=== PATIENT | female | born 2000 | race Two or more races ===

== ENCOUNTER 2020-08-04 13:04 | Emergency (ER) | payer MEDICAID, OTHER ==
[~2020-08-04] VITALS: Ht 167.6 cm; Wt 65.8 kg
[2020-08-04] MEDS ORDERED: PANTOPRAZOLE 40 MG/10 ML VIAL INJ IV ONE (13:30)
[2020-08-04] MEDS ORDERED: SODIUM CHLORIDE 0.9% 1,000 ML IVB ONE (13:30)
[2020-08-04] MEDS ORDERED: MORPHINE SULFATE 4 MG/ML SYR/VIAL IV ONE (13:30)
[2020-08-04] MEDS ORDERED: PROCHLORPERAZINE EDISYLATE 5 MG/ML 2ML VIAL IV ONE (13:30)
[2020-08-04 13:53] VITALS: BP 129/77
[2020-08-04 13:53] LABS: Basophils # (auto) 0 10 ^3/uL (0-0.2); Basophils % (auto) 0.3 % (0.0-2.0); Eosinophils # (auto) 0 10 ^3/uL (0-0.8); Hematocrit 44.2 % (36.0-46.0); Hemoglobin 15.1 g/dL (12.2-16.2); Lymphocytes % (auto) 8.8 % (10.0-50.0); Mean Corpuscular Hemoglobin 31.8 pg (28.0-32.0); Mean Corpuscular Hgb Conc. 34.2 g/dL (32.0-36.0); Mean Corpuscular Volume 92.9 fL (80.0-100.0); Monocytes # (auto) 0.4 10 ^3/uL (0-1.3); Monocytes % (auto) 3.8 % (0.0-12.0); Neutrophils # (auto) 10.2 10 ^3/uL (1.6-8.6); Neutrophils % (auto) 87.1 % (37.0-80.0); Red Blood Cells 4.76 10^6/uL (4.0-5.20); Red Cell Distribution Width 13.1 % (11.8-14.3); White Blood Cell 11.7 10^3/uL (4.4-10.8)
[2020-08-04 14:15] LABS: Albumin 4.1 g/dL (3.4-5.0); Calcium 9.1 mg/dL (8.5-10.1); Potassium 3.6 mmol/L (3.5-5.1)
[2020-08-04 14:18] LABS: BUN/Creatinine Ratio 18.8; Bilirubin, Total 0.6 mg/dL (0.2-1.0); Total Protein 7.8 g/dL (6.4-8.2)
== END 2020-08-04 15:13 | disposition home or self-care (01) ==
LOC: ER 13:04
DX: R11.2 Nausea with vomiting, unspecified (principal); F12.90 Cannabis use, unspecified, uncomplicated
CPT/HCPCS: 36415; 80053; 83690; 85025; 96361; 96374; 96375; 99284; C9113; J0780; J2270; J7030

== ENCOUNTER 2020-08-24 13:57 | Emergency (ER) | payer MEDICAID ==
[~2020-08-24] VITALS: Ht 167.6 cm; Wt 65.8 kg
[2020-08-24 14:46] VITALS: BP 113/76
[2020-08-24] MEDS ORDERED: KETOROLAC TROMETH 60MG/2ML VIAL IM ONE (15:45)
== END 2020-08-24 17:27 | disposition home or self-care (01) ==
LOC: ER 13:57
DX: M62.830 Muscle spasm of back (principal); M54.5 Low back pain; V49.9XXA Car occupant (driver) (passenger) injured in unspecified traffic accident, initial encounter; Y93.89 Activity, other specified; Y92.89 Other specified places as the place of occurrence of the external cause; Y99.8 Other external cause status
CPT/HCPCS: 71250; 72040; 72100; 96372; 99284; J1885

== ENCOUNTER 2020-12-01 15:55 | Emergency (ER) | payer MEDICAID ==
[~2020-12-01] VITALS: Ht 167.6 cm; Wt 65.8 kg
[2020-12-01] MEDS ORDERED: ACETAMINOPHEN 325 MG TAB PO ONE (17:45)
[2020-12-01 18:42] LABS: Basophils # (auto) 0.1 10 ^3/uL (0-0.2); Basophils % (auto) 0.5 % (0.0-2.0); Eosinophils # (auto) 0 10 ^3/uL (0-0.8); Hematocrit 38.3 % (36.0-46.0); Hemoglobin 13.2 g/dL (12.2-16.2); Mean Corpuscular Hemoglobin 30.8 pg (28.0-32.0); Mean Corpuscular Hgb Conc. 34.4 g/dL (32.0-36.0); Mean Corpuscular Volume 89.5 fL (80.0-100.0); Monocytes # (auto) 0.6 10 ^3/uL (0-1.3); Monocytes % (auto) 3.8 % (0.0-12.0); Neutrophils % (auto) 89.7 % (37.0-80.0); Nucleated Red Blood Cells % 0.1 %; Platelet Count (auto) 263 10^3/uL (140-450); Red Blood Cells 4.28 10^6/uL (4.0-5.20); White Blood Cell 16.7 10^3/uL (4.4-10.8)
[2020-12-01 18:59] LABS: Albumin 4.2 g/dL (3.4-5.0); Potassium 3.1 mmol/L (3.5-5.1)
[2020-12-01 19:03] LABS: BUN/Creatinine Ratio 8.4; Bilirubin, Total 0.7 mg/dL (0.2-1.0); Total Protein 7.4 g/dL (6.4-8.2)
[2020-12-01] MEDS ORDERED: SODIUM CHLORIDE 0.9% 1,000 ML IV ONE (19:45)
[2020-12-01] MEDS ORDERED: cefTRIAXone 1GM/50ML D5W 50 ML IV ONE (19:45)
[2020-12-01] MEDS ORDERED: metroNIDAZOLE 500MG/100ML 100 ML IV ONE (21:00)
[2020-12-01 21:03] VITALS: BP 118/75
[2020-12-01] MEDS ORDERED: PANTOPRAZOLE 40 MG/10 ML VIAL INJ IV ONE (21:15)
[2020-12-01 22:32] LABS: Urine Bacteria MOD /hpf (None Seen); Urine Blood Negative /uL (Negative); Urine Hyaline Cast FEW /lpf (0 - 2); Urine Specific Gravity 1.013 (1.001-1.035); Urine WBC 3 /hpf (0 - 5)
== END 2020-12-01 23:34 | disposition home or self-care (01) ==
LOC: ER 15:55
DX: K52.9 Noninfective gastroenteritis and colitis, unspecified (principal); Z20.822 Contact with and (suspected) exposure to COVID-19
CPT/HCPCS: 36415; 71046; 74176; 80053; 81001; 83690; 85025; 85049; 87426; 96365; 96367; 96375; 99285; C9113; J0696; J3490; J7030

== ENCOUNTER 2021-06-10 07:32 | Emergency (ER) | payer MEDICAID ==
[~2021-06-10] VITALS: Ht 167.6 cm; Wt 65.8 kg
[2021-06-10 08:25] LABS: Urine Bacteria FEW /hpf (None Seen); Urine Blood Negative /uL (Negative); Urine Mucus FEW (None Seen); Urine Specific Gravity 1.031 (1.001-1.035); Urine WBC 2 /hpf (0 - 5)
[2021-06-10] MEDS ORDERED: SODIUM CHLORIDE 0.9% 1,000 ML IV ONE ×2 (09:00)
[2021-06-10] MEDS ORDERED: PROCHLORPERAZINE EDISYLATE 5 MG/ML 2ML VIAL IV ONE (09:00)
[2021-06-10] MEDS ORDERED: MORPHINE SULFATE 4 MG/ML SYR/VIAL IV ONE (09:00)
[2021-06-10 10:03] LABS: Alcohol, Urine < 3.0 mg/dL (0-10); Amphetamine Screen, Urine NEGATIVE (NEGATIVE); Barbiturate Scree,Urine NEGATIVE (NEGATIVE); Benzodiazephine Screen, Urine NEGATIVE (NEGATIVE); Cannabinoid Screen, Urine POSITIVE (NEGATIVE); Cocaine Screen, Urine NEGATIVE (NEGATIVE); Opiate Scree,Urine NEGATIVE (NEGATIVE); Phencyclidine Screen, Urine NEGATIVE (NEGATIVE)
[2021-06-10 10:54] LABS: Basophils # (auto) 0 10 ^3/uL (0-0.2); Basophils % (auto) 0.4 % (0.0-2.0); Eosinophils # (auto) 0 10 ^3/uL (0-0.8); Eosinophils % (auto) 0.1 % (0.0-7.0); Hematocrit 40.8 % (36.0-46.0); Hemoglobin 14.4 g/dL (12.2-16.2); Lymphocytes # (auto) 1.9 10 ^3/uL (0.4-5.4); Lymphocytes % (auto) 19.7 % (10.0-50.0); Mean Corpuscular Hemoglobin 30.9 pg (28.0-32.0); Mean Corpuscular Hgb Conc. 35.3 g/dL (32.0-36.0); Mean Corpuscular Volume 87.5 fL (80.0-100.0); Monocytes # (auto) 0.8 10 ^3/uL (0-1.3); Monocytes % (auto) 8.4 % (0.0-12.0); Neutrophils # (auto) 6.8 10 ^3/uL (1.6-8.6); Neutrophils % (auto) 71.4 % (37.0-80.0); Nucleated Red Blood Cells % 0.1 %; Red Blood Cells 4.66 10^6/uL (4.0-5.20); Red Cell Distribution Width 13.1 % (11.8-14.3); White Blood Cell 9.6 10^3/uL (4.4-10.8)
[2021-06-10 11:00] LABS: Albumin 4.6 g/dL (3.4-5.0); Calcium 9.6 mg/dL (8.5-10.1); Potassium 3.8 mmol/L (3.5-5.1)
[2021-06-10 11:05] LABS: BUN/Creatinine Ratio 18.8; Bilirubin, Total 0.9 mg/dL (0.2-1.0)
[2021-06-10 11:56] VITALS: BP 130/70
== END 2021-06-10 12:43 | disposition home or self-care (01) ==
LOC: ER 07:32
DX: F12.188 Cannabis abuse with other cannabis-induced disorder (principal)
CPT/HCPCS: 36415; 80053; 80307; 81001; 83690; 84702; 85025; 96361; 96374; 96375; 99284; J0780; J2270; J7030

== ENCOUNTER 2022-06-10 11:07 | Emergency (ER) | payer BC, MEDICAID ==
[~2022-06-10] VITALS: Ht 167.6 cm; Wt 63.6 kg
[~2022-06-10 11:07] MED LIST: KETO10TA PO
[2022-06-10] MEDS ORDERED: SODIUM CHLORIDE 0.9% 1,000 ML IVB ONE (11:30)
[2022-06-10] MEDS ORDERED: PANTOPRAZOLE 40 MG/10 ML VIAL INJ IV ONE (11:30)
[2022-06-10] MEDS ORDERED: PROCHLORPERAZINE EDISYLATE 5 MG/ML 2ML VIAL IV ONE (11:30)
[2022-06-10] MEDS ORDERED: MORPHINE SULFATE 4 MG/ML SYR/VIAL IV ONE (11:30)
[2022-06-10 11:56] LABS: Basophils # (auto) 0.1 10 ^3/uL (0-0.2); Basophils % (auto) 0.6 % (0.0-2.0); Eosinophils # (auto) 0 10 ^3/uL (0-0.8); Eosinophils % (auto) 0.1 % (0.0-7.0); Hematocrit 41.9 % (36.0-46.0); Hemoglobin 14.4 g/dL (12.2-16.2); Lymphocytes # (auto) 0.9 10 ^3/uL (0.4-5.4); Lymphocytes % (auto) 7.8 % (10.0-50.0); Mean Corpuscular Hemoglobin 30.6 pg (28.0-32.0); Mean Corpuscular Hgb Conc. 34.4 g/dL (32.0-36.0); Mean Corpuscular Volume 88.8 fL (80.0-100.0); Monocytes # (auto) 0.4 10 ^3/uL (0-1.3); Neutrophils # (auto) 10.6 10 ^3/uL (1.6-8.6); Neutrophils % (auto) 88.5 % (37.0-80.0); Red Blood Cells 4.72 10^6/uL (4.0-5.20); Red Cell Distribution Width 12.7 % (11.8-14.3); White Blood Cell 11.9 10^3/uL (4.4-10.8)
[2022-06-10 12:08] LABS: Albumin 4.4 g/dL (3.4-5.0); Calcium 9.1 mg/dL (8.5-10.1); Potassium 3.3 mmol/L (3.5-5.1)
[2022-06-10 12:15] LABS: BUN/Creatinine Ratio 11.1; Bilirubin, Total 0.6 mg/dL (0.2-1.0)
[2022-06-10] MEDS ORDERED: PANT40TA2 PO (13:31)
[2022-06-10 13:54] VITALS: BP 132/64
== END 2022-06-10 13:55 | disposition home or self-care (01) ==
LOC: ER 11:07
DX: R11.2 Nausea with vomiting, unspecified (principal); F12.90 Cannabis use, unspecified, uncomplicated
CPT/HCPCS: 36415; 80053; 83690; 85025; 96361; 96374; 96375; 99284; C9113; J0780; J2270; J7030

== ENCOUNTER 2023-08-20 03:43 | Inpatient (IN) | payer BC, MEDICAID ==
[~2023-08-20] VITALS: Ht 167.6 cm; Wt 76.0 kg
[~2023-08-20 03:43] MED LIST changes: +DICY10CA PO; -KETO10TA PO; +NAPR-1335 PO; +PANT40TA2 PO; +ZOFR4T PO
[2023-08-20 04:50] LABS: Hemoglobin 15.3 g/dL (12.2-16.2); Mean Corpuscular Hemoglobin 29.7 pg (28.0-32.0); Red Blood Cells 5.14 10^6/uL (4.0-5.20)
[2023-08-20 04:51] LABS: Basophils # (auto) 0.1 10 ^3/uL (0-0.2); Basophils % (auto) 0.6 % (0.0-2.0); Eosinophils # (auto) 0 10 ^3/uL (0-0.8); Eosinophils % (auto) 0.1 % (0.0-7.0); Hematocrit 45.4 % (36.0-46.0); Lymphocytes # (auto) 2.1 10 ^3/uL (0.4-5.4); Mean Corpuscular Hgb Conc. 33.6 g/dL (32.0-36.0); Mean Corpuscular Volume 88.4 fL (80.0-100.0); Monocytes % (auto) 6.4 % (0.0-12.0); Neutrophils # (auto) 11.8 10 ^3/uL (1.6-8.6); Neutrophils % (auto) 78.9 % (37.0-80.0); Nucleated Red Blood Cells % 0.1 %; Red Cell Distribution Width 13.9 % (11.8-14.3); White Blood Cell 14.9 10^3/uL (4.4-10.8)
[2023-08-20 05:23] LABS: Chloride 101 mmol/L (98-107); Potassium 3.6 mmol/L (3.5-5.1); Sodium 137 mmol/L (136-145)
[2023-08-20 05:24] LABS: Anion Gap 9 (5-15); Calcium 10.6 mg/dL (8.7-10.4); Carbon Dioxide 27 mmol/L (20-30)
[2023-08-20 05:29] LABS: BUN/Creatinine Ratio 11.7 (10.0-20.0); Blood Urea Nitrogen 11 mg/dL (9-23); Glucose 127 mg/dL (74-106)
[2023-08-20 07:06] LABS: Alanine Aminotransferase 14 U/L (7-40); Alkaline Phosphatase 107 U/L (46-116); Aspartate Aminotransferase 16 U/L (13-40)
[2023-08-20] MEDS: SODIUM CHLORIDE 0.9% 1,000 ML IV ONE ×2 (07:58)
[2023-08-20] MEDS: metroNIDAZOLE 500MG/100ML 100 ML IV ONE (08:03)
[2023-08-20] MEDS: cefTRIAXone 1GM/50ML D5W 50 ML IV ONE (08:03)
[2023-08-20 08:15] VITALS: RESP 14; O2SAT 100
[2023-08-20] MEDS ORDERED: DOCUSATE SOD 100 MG CAP PO PRN ×3 (08:45→09:30)
[2023-08-20] MEDS ORDERED: ACETAMINOPHEN 325 MG TAB PO PRN ×3 (08:45→09:30)
[2023-08-20] MEDS ORDERED: MORPHINE SULFATE INJ 2 MG/ml SYRG IV PRN ×2 (08:45→09:30)
[2023-08-20] MEDS ORDERED: SODIUM CHLORIDE 0.9% 1,000 ML IV SCH ×2 (08:45→09:30)
[2023-08-20] MEDS ORDERED: ONDANSETRON HCL 4 MG/2 ML VIAL IV PRN ×2 (08:45→09:30)
[2023-08-20] MEDS ORDERED: cefTRIAXone 1GM/50ML D5W 50 ML IV SCH (09:00)
[2023-08-20] MEDS: cefTRIAXone 1GM/50ML D5W 50 ML IV SCH (09:00)
[2023-08-20] MEDS ORDERED: KETOROLAC TROMETH 30 MG/ML 1ML VIAL IV PRN (09:00)
[2023-08-20] MEDS: DICYCLOMINE HCL 10 MG CAP PO SCH ×2 (09:18→21:30)
[2023-08-20] MEDS: KETOROLAC TROMETH 30 MG/ML 1ML VIAL IV ONE (09:23)
[2023-08-20] MEDS: PANTOPRAZOLE 40 MG/10 ML VIAL INJ IV ONE (09:23)
[2023-08-20] MEDS: metroNIDAZOLE 500MG/100ML 100 ML IV SCH (09:24)
[2023-08-20 09:30] LABS: Erythrocyte Sedimentation Rate 7 mm/hr (0-20)
[2023-08-20] MEDS: PANTOPRAZOLE 40 MG/10 ML VIAL INJ IV SCH (09:30)
[2023-08-20] MEDS: SODIUM CHLORIDE 0.9% 1,000 ML IV SCH (09:30)
[2023-08-20] MEDS: ONDANSETRON HCL 4 MG/2 ML VIAL IV PRN (09:45)
[2023-08-20] MEDS ORDERED: PANTOPRAZOLE 40 MG/10 ML VIAL INJ IV SCH (10:00)
[2023-08-20 10:46] VITALS: BP_SYST 119; BP_DIAS 53; BP_DIAS 55; PULSE 68; RESP 17; TEMP 98.2; O2SAT 99
[2023-08-20] MEDS: MORPHINE SULFATE INJ 2 MG/ml SYRG IV PRN (13:17)
[2023-08-20] MEDS ORDERED: DICYCLOMINE HCL 10 MG CAP PO SCH (14:00)
[2023-08-20] MEDS ORDERED: metroNIDAZOLE 500MG/100ML 100 ML IV SCH (14:00)
[2023-08-20 17:20] VITALS: BP 111/79; PULSE 60; RESP 20; TEMP 98; O2SAT 100
[2023-08-20 20:00] VITALS: BP 110/74; PULSE 50; RESP 18; TEMP 97.8; O2SAT 96
[2023-08-20] MEDS: KETOROLAC TROMETH 30 MG/ML 1ML VIAL IV PRN (21:30)
[2023-08-20 22:00] VITALS: BP 106/78; PULSE 49; RESP 16; TEMP 98.5; O2SAT 97
[2023-08-21] VITALS (8 sets, daily range): BP systolic 100–117; BP diastolic 55–75; PULSE 50–68; RESP 17–21; TEMP 88.3–98.7; O2SAT 98–99
[2023-08-21 05:41] LABS: Basophils # (auto) 0.1 10 ^3/uL (0-0.2); Basophils % (auto) 0.9 % (0.0-2.0); Eosinophils # (auto) 0 10 ^3/uL (0-0.8); Eosinophils % (auto) 0.6 % (0.0-7.0); Hematocrit 38.2 % (36.0-46.0); Hemoglobin 12.8 g/dL (12.2-16.2); Lymphocytes # (auto) 3.2 10 ^3/uL (0.4-5.4); Lymphocytes % (auto) 40.9 % (10.0-50.0); Mean Corpuscular Hemoglobin 29.9 pg (28.0-32.0); Mean Corpuscular Hgb Conc. 33.5 g/dL (32.0-36.0); Mean Corpuscular Volume 89.4 fL (80.0-100.0); Monocytes # (auto) 0.8 10 ^3/uL (0-1.3); Neutrophils # (auto) 3.7 10 ^3/uL (1.6-8.6); Neutrophils % (auto) 47.6 % (37.0-80.0); Red Blood Cells 4.27 10^6/uL (4.0-5.20); Red Cell Distribution Width 13.4 % (11.8-14.3); White Blood Cell 7.8 10^3/uL (4.4-10.8)
[2023-08-21 06:05] LABS: Albumin 3.9 g/dL (3.2-4.8); Alkaline Phosphatase 74 U/L (46-116); Anion Gap 8 (5-15); Aspartate Aminotransferase 10 U/L (13-40); BUN/Creatinine Ratio 11.2 (10.0-20.0); Bilirubin, Total 0.6 mg/dL (0.2-1.0); Blood Urea Nitrogen 10 mg/dL (9-23); Calcium 8.9 mg/dL (8.5-10.1); Carbon Dioxide 25 mmol/L (20-30); Chloride 106 mmol/L (98-107); Glucose 82 mg/dL (74-106); Potassium 3.9 mmol/L (3.5-5.1); Sodium 139 mmol/L (136-145)
[2023-08-21 06:48] LABS: Alanine Aminotransferase < 9 U/L (7-40)
[2023-08-21 17:09] LABS: Urine Bacteria NONE SEEN /hpf (None Seen); Urine Blood Negative /uL (Negative); Urine Clarity Clear (Clear); Urine Color Colorless (Yellow); Urine Protein, UAD Negative (Negative); Urine Specific Gravity 1.011 (1.001-1.035); Urine Urobilinogen Normal (Negative); Urine WBC <1 /hpf (0 - 5); Urine pH 5.5 (5.0-8.0)
[2023-08-21 17:20] LABS: Amphetamine Screen, Urine Neg (NEGATIVE); Barbiturate Scree,Urine Neg (NEGATIVE); Benzodiazephine Screen, Urine Neg (NEGATIVE); Cocaine Screen, Urine Neg (NEGATIVE); Opiate Scree,Urine Neg (NEGATIVE)
[2023-08-21 17:21] LABS: Cannabinoid Screen, Urine Pos (NEGATIVE); Phencyclidine Screen, Urine Neg (NEGATIVE)
[2023-08-21] MEDS: MAGNESIUM CITRATE SOLUTION 300 ML BTL PO ONE (22:45)
[2023-08-22] VITALS (8 sets, daily range): BP systolic 100–125; BP diastolic 44–81; PULSE 49–89; RESP 17–20; TEMP 97.5–98.2; O2SAT 98–100
[2023-08-22] MEDS: GOLYTELY 4L KIT PO ONE (12:26)
[2023-08-23 05:51] LABS: INR 1.15 (0.9-1.15); Partial Thromboplastin Time 31.3 SEC (24.5-34.5)
[2023-08-23] MEDS: MAGNESIUM CITRATE SOLUTION 300 ML BTL PO ONE (06:00)
[2023-08-23] MEDS: GOLYTELY 4L KIT PO ONE (06:37)
[2023-08-23 08:39] VITALS: BP 102/59; PULSE 65; RESP 16; TEMP 98.5; O2SAT 98
[2023-08-23] MEDS: POLYETHYLENE GLYCOL 17 GM PWDR PO SCH (09:03)
[2023-08-23] MEDS ORDERED: KETAMINE 50mg/ML 1ml syringe ONE (12:56)
[2023-08-23] MEDS ORDERED: fentaNYL CITRATE 100 MCG/2 ML VL ONE (12:56)
[2023-08-23] MEDS ORDERED: MIDAZOLAM HCL 2MG/2ML 2ml VIAL (1mg/ml) ONE ×2 (12:56→14:55)
[2023-08-23] MEDS ORDERED: ONDANSETRON HCL 4 MG/2 ML VIAL ONE (12:57)
[2023-08-23] MEDS ORDERED: GLYCOPYRROLATE 0.2 MG/ML 1ML VIAL ONE (12:57)
[2023-08-23] MEDS ORDERED: PROPOFOL 10 MG/ML 20 ML IV ONE (12:57)
[2023-08-23 13:00] VITALS: BP 114/78; PULSE 51; RESP 18; TEMP 98.6; O2SAT 100
[2023-08-23] MEDS ORDERED: HYDROmorphone HCL 2 MG/ML VL/or syr IV PRN (15:15)
[2023-08-23] MEDS: ONDANSETRON HCL 4 MG/2 ML VIAL IV ONE (15:15)
[2023-08-23 16:59] VITALS: BP 108/67; PULSE 96; RESP 18; TEMP 98; O2SAT 98
[2023-08-23 20:00] VITALS: BP 123/80; PULSE 68; RESP 18; TEMP 98.3; O2SAT 100
[2023-08-23 21:00] VITALS: BP 123/80; PULSE 68; RESP 18; TEMP 98.3; O2SAT 100
[2023-08-24 01:00] VITALS: BP 134/76; PULSE 59; RESP 17; TEMP 97.9; O2SAT 100
[2023-08-24 05:00] VITALS: BP 146/81; PULSE 76; RESP 19; TEMP 98.3; O2SAT 100
[2023-08-24 08:31] VITALS: BP 126/90; PULSE 74; RESP 15; TEMP 98.2; O2SAT 99
[2023-08-24] MEDS ORDERED: DICY10CA PO (11:09)
[2023-08-24] MEDS ORDERED: PANT40TA2 PO (11:09)
[2023-08-24] MEDS ORDERED: MET500T PO (11:12)
[2023-08-24] MEDS ORDERED: LEVO500T91 PO (11:12)
[2023-08-24 12:02] VITALS: BP 132/76; PULSE 60; RESP 16; TEMP 98.6; O2SAT 99
[2023-08-24 15:06] LABS: Saccharomyces cerevisiae IgA <20.0 Units (0.0-24.9)
== END 2023-08-24 16:00 | disposition home or self-care (01) | DRG 872 ==
LOC: ER 03:43 → OVERFLOW 08:45 → ER 08:45 → WEST WING 10:27
PROVIDERS: ADMIT Nurse Practitioner Family; ATTEND Internal Medicine
PROC: 0DBB8ZX Excision of Ileum, Via Natural or Artificial Opening Endoscopic, Diagnostic (ICD-10-PCS; 2023-08-23)
PROC: 0DB98ZX Excision of Duodenum, Via Natural or Artificial Opening Endoscopic, Diagnostic (ICD-10-PCS; principal; 2023-08-23 14:17)
PROC: 0DB68ZX Excision of Stomach, Via Natural or Artificial Opening Endoscopic, Diagnostic (ICD-10-PCS; 2023-08-23 14:17)
DX: A41.9 Sepsis, unspecified organism (principal); E83.52 Hypercalcemia; I88.0 Nonspecific mesenteric lymphadenitis; Z79.899 Other long term (current) drug therapy
CPT/HCPCS: 36415; 78226; 80048; 80053; 80307; 81001; 83605; 84075; 84450; 84460; 84702; 85025; 85610; 85652; 85730; 86141; 86256; 86671; 86850; 86900; 86901; 87040; 96365; 96368; 96375; C9113; G0378; J1885; J2250; J2405; J2704; J3490

== ENCOUNTER 2023-11-07 06:27 | Inpatient (IN) | payer BC, MEDICAID ==
[~2023-11-07] VITALS: Ht 165.1 cm; Wt 160.0 kg
[~2023-11-07 06:27] MED LIST changes: +LEVO500T91 PO; +MET500T PO
[2023-11-07 07:42] LABS: Basophils # (auto) 0.1 10 ^3/uL (0-0.2); Basophils % (auto) 0.6 % (0.0-2.0); Eosinophils # (auto) 0 10 ^3/uL (0-0.8); Eosinophils % (auto) 0.1 % (0.0-7.0); Hematocrit 44.1 % (36.0-46.0); Hemoglobin 15.1 g/dL (12.2-16.2); Lymphocytes # (auto) 1.7 10 ^3/uL (0.4-5.4); Mean Corpuscular Hemoglobin 30.4 pg (28.0-32.0); Mean Corpuscular Hgb Conc. 34.2 g/dL (32.0-36.0); Monocytes # (auto) 0.6 10 ^3/uL (0-1.3); Monocytes % (auto) 4.4 % (0.0-12.0); Neutrophils # (auto) 12.1 10 ^3/uL (1.6-8.6); Neutrophils % (auto) 82.9 % (37.0-80.0); Red Blood Cells 4.96 10^6/uL (4.0-5.20); White Blood Cell 14.5 10^3/uL (4.4-10.8)
[2023-11-07 07:47] LABS: Chloride 100 mmol/L (98-107); Potassium 3.6 mmol/L (3.5-5.1); Sodium 140 mmol/L (136-145)
[2023-11-07 07:48] LABS: Anion Gap 11 (5-15); Carbon Dioxide 29 mmol/L (20-30)
[2023-11-07 07:49] LABS: Calcium 10.3 mg/dL (8.7-10.4)
[2023-11-07 07:53] LABS: Glucose 131 mg/dL (74-106)
[2023-11-07 07:54] LABS: BUN/Creatinine Ratio 9.7 (10.0-20.0); Blood Urea Nitrogen 9 mg/dL (9-23)
[2023-11-07 07:57] LABS: Urine Bacteria None Seen /hpf (None Seen)
[2023-11-07 08:31] LABS: Urine Amorphous Crystal FEW /hpf (None Seen); Urine Blood Negative /uL (Negative); Urine Clarity Ex.Turbid (Clear); Urine Color Light-Orange (Yellow); Urine Protein, UAD TRACE (Negative); Urine Urobilinogen Normal (Negative); Urine WBC 22 /hpf (0 - 5); Urine WBC Clumps PRESENT /hpf (None Seen); Urine pH 7.5 (5.0-9.0)
[2023-11-07] MEDS ORDERED: DOCUSATE SOD 100 MG CAP PO PRN (08:45)
[2023-11-07 09:02] LABS: Amphetamine Screen, Urine Neg (NEGATIVE); Barbiturate Scree,Urine Neg (NEGATIVE); Benzodiazephine Screen, Urine Neg (NEGATIVE); Cocaine Screen, Urine Neg (NEGATIVE); Opiate Scree,Urine Neg (NEGATIVE); Phencyclidine Screen, Urine Neg (NEGATIVE)
[2023-11-07 09:03] LABS: Cannabinoid Screen, Urine Pos (NEGATIVE)
[2023-11-07] MEDS ORDERED: MORPHINE SULFATE INJ 2 MG/ml SYRG IV PRN (09:45)
[2023-11-07] MEDS ORDERED: NITROGLYCERIN 0.4 MG SL TAB SL PRN (09:45)
[2023-11-07] MEDS: cefTRIAXone 1GM/50ML D5W 50 ML IV ONE (09:59)
[2023-11-07] MEDS: PANTOPRAZOLE 40 MG/10 ML VIAL INJ IV ONE (10:00)
[2023-11-07] MEDS: ONDANSETRON HCL 4 MG/2 ML VIAL IV ONE (10:00)
[2023-11-07] MEDS: METOCLOPRAMIDE HCL 5MG/ml INJ 2ml VIAL IV ONE (10:00)
[2023-11-07] MEDS: PANTOPRAZOLE 40 MG/10 ML VIAL INJ IV SCH (10:00)
[2023-11-07] MEDS: MORPHINE SULFATE 4 MG/ML SYR/VIAL IV ONE (10:01)
[2023-11-07] MEDS: MORPHINE SULFATE INJ 2 MG/ml SYRG IV PRN (10:01)
[2023-11-07] MEDS: SODIUM CHLORIDE 0.9% 1,000 ML IV SCH (10:03)
[2023-11-07 10:11] VITALS: PULSE 71; RESP 20; O2SAT 98
[2023-11-07] MEDS: DICYCLOMINE HCL (10MG/ML) 2 ML AMPULE IM ONE (10:14)
[2023-11-07] MEDS: METOCLOPRAMIDE HCL 5MG/ml INJ 2ml VIAL IV SCH (10:40)
[2023-11-07] MEDS: SODIUM CHLORIDE 0.9% 3,000 ML IV ONE (10:50)
[2023-11-07] MEDS: DICYCLOMINE HCL 10 MG CAP PO SCH (12:00)
[2023-11-07 13:00] VITALS: BP 134/73; PULSE 57; RESP 18; TEMP 98.6; O2SAT 96
[2023-11-07] MEDS: ONDANSETRON HCL 4 MG/2 ML VIAL IV PRN (13:59)
[2023-11-07 17:00] VITALS: BP 96/37; PULSE 67; RESP 20; TEMP 98.6; O2SAT 100
[2023-11-07 20:00] VITALS: PULSE 63; RESP 18; O2SAT 98
[2023-11-07 21:00] VITALS: BP 102/62; PULSE 54; RESP 14; TEMP 97.8; O2SAT 100
[2023-11-08 00:56] VITALS: BP 103/51; PULSE 56; RESP 14; TEMP 98; O2SAT 98
[2023-11-08 05:00] VITALS: BP 100/56; PULSE 52; RESP 14; TEMP 98; O2SAT 100
[2023-11-08 06:29] LABS: Basophils # (auto) 0 10 ^3/uL (0-0.2); Basophils % (auto) 0.5 % (0.0-2.0); Eosinophils # (auto) 0 10 ^3/uL (0-0.8); Eosinophils % (auto) 0.5 % (0.0-7.0); Hematocrit 36.1 % (36.0-46.0); Hemoglobin 12.4 g/dL (12.2-16.2); Lymphocytes # (auto) 2.9 10 ^3/uL (0.4-5.4); Lymphocytes % (auto) 33.1 % (10.0-50.0); Mean Corpuscular Hemoglobin 30.3 pg (28.0-32.0); Mean Corpuscular Hgb Conc. 34.4 g/dL (32.0-36.0); Mean Corpuscular Volume 88.1 fL (80.0-100.0); Monocytes # (auto) 0.7 10 ^3/uL (0-1.3); Neutrophils # (auto) 5.1 10 ^3/uL (1.6-8.6); Neutrophils % (auto) 57.9 % (37.0-80.0); Nucleated Red Blood Cells % 0.1 %; Red Cell Distribution Width 12.9 % (11.8-14.3); White Blood Cell 8.8 10^3/uL (4.4-10.8)
[2023-11-08 06:48] LABS: Alanine Aminotransferase 12 U/L (7-40); Albumin 3.6 g/dL (3.2-4.8); Alkaline Phosphatase 67 U/L (46-116); Anion Gap 10 (5-15); Aspartate Aminotransferase 9 U/L (13-40); Bilirubin, Total 0.6 mg/dL (0.2-1.0); Blood Urea Nitrogen 6 mg/dL (9-23); Calcium 8.8 mg/dL (8.7-10.4); Carbon Dioxide 23 mmol/L (20-30); Chloride 108 mmol/L (98-107); Glucose 78 mg/dL (74-106); Potassium 3.5 mmol/L (3.5-5.1); Sodium 141 mmol/L (136-145); Total Protein 5.8 g/dL (5.7-8.2)
[2023-11-08 08:00] VITALS: PULSE 60; RESP 18; O2SAT 98
[2023-11-08 09:11] VITALS: BP 111/57; PULSE 58; RESP 20; TEMP 97.9; O2SAT 99
[2023-11-08 13:01] VITALS: BP 109/79; PULSE 76; RESP 18; TEMP 97.9; O2SAT 98
[2023-11-08 16:10] VITALS: TEMP 36.6
== END 2023-11-08 16:45 | disposition home or self-care (01) | DRG 392 ==
LOC: ER 06:27 → OVERFLOW 09:35 → WEST WING 13:44
PROVIDERS: ADMIT Nurse Practitioner Family; ATTEND Nurse Practitioner Acute Care
DX: R11.2 Nausea with vomiting, unspecified (principal); E86.0 Dehydration; D72.829 Elevated white blood cell count, unspecified; F12.10 Cannabis abuse, uncomplicated; R10.9 Unspecified abdominal pain; F17.200 Nicotine dependence, unspecified, uncomplicated
CPT/HCPCS: 36415; 74176; 80048; 80053; 80307; 81001; 83605; 85025; 87040; 96372; 96374; 96375; C9113; G0378; J2405

== ENCOUNTER 2023-12-11 14:31 | Emergency (ER) | payer BC, MEDICAID ==
[~2023-12-11] VITALS: Ht 167.6 cm; Wt 63.6 kg
[2023-12-11 14:59] VITALS: O2SAT 99
[2023-12-11] MEDS: SODIUM CHLORIDE 0.9% 1,000 ML IVB ONE (15:35)
[2023-12-11] MEDS: PANTOPRAZOLE 40 MG/10 ML VIAL INJ IV ONE (15:36)
[2023-12-11] MEDS: PROCHLORPERAZINE EDISYLATE 5 MG/ML 2ML VIAL IV ONE (15:36)
[2023-12-11 15:37] VITALS: BP 120/78; PULSE 94; RESP 15
[2023-12-11] MEDS: MORPHINE SULFATE 4 MG/ML SYR/VIAL IV ONE (15:37)
[2023-12-11 15:39] LABS: Basophils # (auto) 0.1 10 ^3/uL (0-0.2); Basophils % (auto) 0.3 % (0.0-2.0); Eosinophils # (auto) 0 10 ^3/uL (0-0.8); Eosinophils % (auto) 0.2 % (0.0-7.0); Hematocrit 43.1 % (36.0-46.0); Lymphocytes # (auto) 2.2 10 ^3/uL (0.4-5.4); Mean Corpuscular Hemoglobin 30.7 pg (28.0-32.0); Mean Corpuscular Hgb Conc. 34.7 g/dL (32.0-36.0); Mean Corpuscular Volume 88.6 fL (80.0-100.0); Monocytes # (auto) 0.7 10 ^3/uL (0-1.3); Monocytes % (auto) 4.4 % (0.0-12.0); Neutrophils # (auto) 13.8 10 ^3/uL (1.6-8.6); Neutrophils % (auto) 82.1 % (37.0-80.0); Red Blood Cells 4.87 10^6/uL (4.0-5.20); Red Cell Distribution Width 13.2 % (11.8-14.3); White Blood Cell 16.8 10^3/uL (4.4-10.8)
[2023-12-11 15:48] LABS: Chloride 107 mmol/L (98-107); Potassium 3.8 mmol/L (3.5-5.1); Sodium 139 mmol/L (136-145)
[2023-12-11 15:49] LABS: Anion Gap 10 (5-15); Calcium 10.4 mg/dL (8.7-10.4); Carbon Dioxide 22 mmol/L (20-30)
[2023-12-11 15:54] LABS: Glucose 108 mg/dL (74-106)
[2023-12-11 15:55] LABS: BUN/Creatinine Ratio 10.3 (10.0-20.0); Blood Urea Nitrogen 8 mg/dL (9-23)
== END 2023-12-11 18:43 | disposition home or self-care (01) ==
LOC: ER 14:31
DX: R11.10 Vomiting, unspecified (principal); F12.90 Cannabis use, unspecified, uncomplicated; Z79.899 Other long term (current) drug therapy
CPT/HCPCS: 36415; 80048; 85025; 96361; 96374; 96375; 99284; J0780; J2270; J2470; J7030

== ENCOUNTER 2023-12-15 07:05 | Emergency (ER) | payer BC, MEDICAID ==
[~2023-12-15] VITALS: Ht 182.9 cm; Wt 67.9 kg
[2023-12-15 07:55] VITALS: BP 134/91; PULSE 68; RESP 20; TEMP 98.1; O2SAT 98
[2023-12-15] MEDS: SODIUM CHLORIDE 0.9% 1,000 ML IV ONE (08:17)
[2023-12-15 08:28] LABS: Amphetamine Screen, Urine Neg (NEGATIVE)
[2023-12-15 08:29] LABS: Barbiturate Scree,Urine Neg (NEGATIVE); Benzodiazephine Screen, Urine Neg (NEGATIVE); Cannabinoid Screen, Urine Pos (NEGATIVE); Cocaine Screen, Urine Neg (NEGATIVE); Opiate Scree,Urine Neg (NEGATIVE); Phencyclidine Screen, Urine Neg (NEGATIVE)
[2023-12-15 08:31] LABS: Urine Bacteria FEW /hpf (None Seen); Urine Blood Negative /uL (Negative); Urine Clarity Turbid (Clear); Urine Color Light-Orange (Yellow); Urine Mucus FEW (None Seen); Urine Protein, UAD 1+ (Negative); Urine Specific Gravity 1.025 (1.001-1.035); Urine Urobilinogen Normal (Negative); Urine WBC 15 /hpf (0 - 5); Urine pH 6.5 (5.0-9.0)
[2023-12-15] MEDS: KETOROLAC TROMETH 30 MG/ML 1ML VIAL IV ONE (08:33)
[2023-12-15] MEDS: FAMOTIDINE (10MG/ML) 2ML VL IV ONE (08:33)
[2023-12-15] MEDS: METOCLOPRAMIDE HCL 5MG/ml INJ 2ml VIAL IV ONE (08:33)
[2023-12-15 08:36] LABS: Basophils # (auto) 0.1 10 ^3/uL (0-0.2); Basophils % (auto) 0.5 % (0.0-2.0); Eosinophils # (auto) 0 10 ^3/uL (0-0.8); Hematocrit 41.5 % (36.0-46.0); Hemoglobin 14.7 g/dL (12.2-16.2); Mean Corpuscular Hemoglobin 30.7 pg (28.0-32.0); Mean Corpuscular Hgb Conc. 35.3 g/dL (32.0-36.0); Mean Corpuscular Volume 86.9 fL (80.0-100.0); Monocytes # (auto) 0.9 10 ^3/uL (0-1.3); Monocytes % (auto) 8.1 % (0.0-12.0); Neutrophils # (auto) 8.5 10 ^3/uL (1.6-8.6); Neutrophils % (auto) 74.4 % (37.0-80.0); Nucleated Red Blood Cells % 0.1 %; Red Blood Cells 4.78 10^6/uL (4.0-5.20); Red Cell Distribution Width 12.9 % (11.8-14.3); White Blood Cell 11.5 10^3/uL (4.4-10.8)
[2023-12-15 08:40] LABS: Chloride 102 mmol/L (98-107); Potassium 3.7 mmol/L (3.5-5.1); Sodium 135 mmol/L (136-145)
[2023-12-15 08:41] LABS: Anion Gap 11 (5-15); Carbon Dioxide 22 mmol/L (20-30)
[2023-12-15 08:46] LABS: BUN/Creatinine Ratio 8.3 (10.0-20.0); Blood Urea Nitrogen 6 mg/dL (9-23); Glucose 104 mg/dL (74-106)
[2023-12-15] MEDS ORDERED: METO-281 PO (08:46)
== END 2023-12-15 08:52 | disposition left against medical advice (07) ==
LOC: ER 07:05
DX: F12.188 Cannabis abuse with other cannabis-induced disorder (principal); Z32.02 Encounter for pregnancy test, result negative; Z79.899 Other long term (current) drug therapy
CPT/HCPCS: 36415; 80048; 80307; 81001; 81025; 85025; 99283; J1885; J2765; J3490; J7030

== ENCOUNTER 2023-12-29 14:32 | Emergency (ER) | payer BC, MEDICAID ==
[~2023-12-29] VITALS: Ht 170.2 cm; Wt 66.0 kg
[~2023-12-29 14:32] MED LIST changes: +METO-281 PO
[2023-12-29 15:24] LABS: Chloride 106 mmol/L (98-107); Potassium 3.6 mmol/L (3.5-5.1); Sodium 139 mmol/L (136-145)
[2023-12-29 15:25] LABS: Anion Gap 9 (5-15); Carbon Dioxide 24 mmol/L (20-30)
[2023-12-29 15:26] LABS: Calcium 10.2 mg/dL (8.7-10.4)
[2023-12-29 15:30] LABS: BUN/Creatinine Ratio 10.7 (10.0-20.0); Blood Urea Nitrogen 8 mg/dL (9-23); Glucose 119 mg/dL (74-106)
[2023-12-29 15:31] LABS: Lipase 32 U/L (12-53)
[2023-12-29 16:02] VITALS: PULSE 77; RESP 18; O2SAT 100
[2023-12-29] MEDS: PANTOPRAZOLE 40 MG/10 ML VIAL INJ IV ONE (16:05)
[2023-12-29] MEDS: PROCHLORPERAZINE EDISYLATE 5 MG/ML 2ML VIAL IV ONE (16:06)
[2023-12-29] MEDS: MORPHINE SULFATE 4 MG/ML SYR/VIAL IV ONE (16:06)
[2023-12-29] MEDS: SODIUM CHLORIDE 0.9% 1,000 ML IVB ONE (16:06)
[2023-12-29 16:32] LABS: Basophils # (auto) 0.1 10 ^3/uL (0-0.2); Basophils % (auto) 0.4 % (0.0-2.0); Eosinophils # (auto) 0.1 10 ^3/uL (0-0.8); Eosinophils % (auto) 0.5 % (0.0-7.0); Hematocrit 42.6 % (36.0-46.0); Hemoglobin 14.7 g/dL (12.2-16.2); Lymphocytes # (auto) 1.5 10 ^3/uL (0.4-5.4); Lymphocytes % (auto) 11.2 % (10.0-50.0); Mean Corpuscular Hemoglobin 30.6 pg (28.0-32.0); Mean Corpuscular Hgb Conc. 34.4 g/dL (32.0-36.0); Mean Corpuscular Volume 88.9 fL (80.0-100.0); Monocytes # (auto) 0.8 10 ^3/uL (0-1.3); Monocytes % (auto) 6.3 % (0.0-12.0); Neutrophils # (auto) 10.7 10 ^3/uL (1.6-8.6); Neutrophils % (auto) 81.6 % (37.0-80.0); Red Blood Cells 4.79 10^6/uL (4.0-5.20); Red Cell Distribution Width 13.3 % (11.8-14.3); White Blood Cell 13.1 10^3/uL (4.4-10.8)
[2023-12-29 17:25] VITALS: BP 122/71; TEMP 97.9
[2023-12-29 17:26] VITALS: PULSE 74; RESP 18; O2SAT 99
== END 2023-12-29 17:29 | disposition home or self-care (01) ==
LOC: ER 14:36
DX: R11.10 Vomiting, unspecified (principal); F12.90 Cannabis use, unspecified, uncomplicated; Z79.899 Other long term (current) drug therapy
CPT/HCPCS: 36415; 80048; 83690; 85025; 96361; 96374; 96375; 99284; J0780; J2270; J2470; J7030

== ENCOUNTER 2024-01-01 07:02 | Emergency (ER) | payer BC, MEDICAID ==
[~2024-01-01] VITALS: Ht 170.2 cm; Wt 66.0 kg
[2024-01-01 07:36] LABS: Urine Bacteria None Seen /hpf (None Seen)
[2024-01-01 07:52] LABS: Urine Blood Negative /uL (Negative); Urine Clarity Turbid (Clear); Urine Color Yellow (Yellow); Urine Mucus FEW (None Seen); Urine Protein, UAD 2+ (Negative); Urine Specific Gravity 1.037 (1.001-1.035); Urine Urobilinogen Normal (Negative); Urine WBC 2 /hpf (0 - 5); Urine pH 6.5 (5.0-9.0)
[2024-01-01] MEDS: SODIUM CHLORIDE 0.9% 1,000 ML IVB ONE (08:54)
[2024-01-01] MEDS: ONDANSETRON HCL 4 MG/2 ML VIAL IV ONE (08:55)
[2024-01-01] MEDS: FAMOTIDINE (10MG/ML) 2ML VL IV ONE (08:55)
[2024-01-01] MEDS: KETOROLAC TROMETH 30 MG/ML 1ML VIAL IV ONE (08:55)
[2024-01-01] MEDS: diphenhdrAMINE HCL 50 MG/1 ML VL IV ONE (08:56)
[2024-01-01] MEDS: HALOPERIDOL LACTATE 5 MG/ML INJ VIAL IV ONE (08:57)
[2024-01-01] MEDS: MORPHINE SULFATE 4 MG/ML SYR/VIAL IV ONE (09:00)
[2024-01-01] MEDS: MAALOX PLUS or MAALOX 30 ML PO ONE (09:05)
[2024-01-01] MEDS: LIDOCAINE VISCOUS 2% 15ML UD PO ONE (09:06)
[2024-01-01 09:10] LABS: Basophils # (auto) 0 10 ^3/uL (0-0.2); Basophils % (auto) 0.2 % (0.0-2.0); Eosinophils # (auto) 0 10 ^3/uL (0-0.8); Eosinophils % (auto) 0.1 % (0.0-7.0); Hematocrit 39.9 % (36.0-46.0); Lymphocytes # (auto) 0.8 10 ^3/uL (0.4-5.4); Lymphocytes % (auto) 6.3 % (10.0-50.0); Mean Corpuscular Hemoglobin 31.1 pg (28.0-32.0); Mean Corpuscular Hgb Conc. 35.1 g/dL (32.0-36.0); Mean Corpuscular Volume 88.5 fL (80.0-100.0); Monocytes # (auto) 0.6 10 ^3/uL (0-1.3); Monocytes % (auto) 5.1 % (0.0-12.0); Neutrophils # (auto) 10.9 10 ^3/uL (1.6-8.6); Neutrophils % (auto) 88.3 % (37.0-80.0); Red Blood Cells 4.51 10^6/uL (4.0-5.20); Red Cell Distribution Width 13.6 % (11.8-14.3); White Blood Cell 12.3 10^3/uL (4.4-10.8)
[2024-01-01 09:25] LABS: INR 1.08 (0.9-1.15); Partial Thromboplastin Time 26.5 SEC (24.5-34.5); Prothrombin Time 11.4 sec (9.3-11.8)
[2024-01-01 09:28] LABS: Alanine Aminotransferase 16 U/L (7-40); Alkaline Phosphatase 96 U/L (46-116); Anion Gap 9 (5-15); Aspartate Aminotransferase < 8 U/L (13-40); BUN/Creatinine Ratio 11.4 (10.0-20.0); Bilirubin, Total 0.5 mg/dL (0.2-1.0); Blood Urea Nitrogen 8 mg/dL (9-23); Carbon Dioxide 24 mmol/L (20-30); Chloride 103 mmol/L (98-107); Glucose 127 mg/dL (74-106); Potassium 3.4 mmol/L (3.5-5.1); Sodium 136 mmol/L (136-145); Total Protein 7.4 g/dL (5.7-8.2)
[2024-01-01] MEDS: SODIUM CHLORIDE 0.9% 1,000 ML IV ONE (10:45)
[2024-01-01 10:49] VITALS: BP 117/67; PULSE 64; RESP 18; TEMP 98.7; O2SAT 100
[2024-01-01 10:53] LABS: Lipase 37 U/L (12-53)
[2024-01-01] MEDS ORDERED: METO-281 PO (11:36)
[2024-01-01] MEDS ORDERED: ZOFR4T PO (11:36)
== END 2024-01-01 11:49 | disposition home or self-care (01) ==
LOC: ER 07:02
DX: G43.A0 Cyclical vomiting, in migraine, not intractable (principal); R10.2 Pelvic and perineal pain; F12.90 Cannabis use, unspecified, uncomplicated; Z79.899 Other long term (current) drug therapy
CPT/HCPCS: 36415; 74018; 80053; 81001; 83690; 84702; 85025; 85610; 85730; 96361; 96374; 96375; 99284; J1200; J1630; J1885; J2270; J2405; J3490

== ENCOUNTER 2024-01-07 15:18 | Emergency (ER) | payer BC, MEDICAID ==
[~2024-01-07] VITALS: Ht 170.2 cm; Wt 63.1 kg
[2024-01-07 15:33] VITALS: BP 122/101; PULSE 112; RESP 18; O2SAT 99
[2024-01-07 16:11] LABS: Eosinophils # (auto) 0 10 ^3/uL (0-0.8); Eosinophils % (auto) 0.1 % (0.0-7.0); Hemoglobin 15.4 g/dL (12.2-16.2); Monocytes # (auto) 0.6 10 ^3/uL (0-1.3); Nucleated Red Blood Cells % 0.1 %
[2024-01-07 16:12] LABS: Basophils # (auto) 0.1 10 ^3/uL (0-0.2); Basophils % (auto) 0.5 % (0.0-2.0); Hematocrit 44.7 % (36.0-46.0); Lymphocytes # (auto) 1.4 10 ^3/uL (0.4-5.4); Lymphocytes % (auto) 9.7 % (10.0-50.0); Mean Corpuscular Hgb Conc. 34.5 g/dL (32.0-36.0); Mean Corpuscular Volume 87.2 fL (80.0-100.0); Monocytes % (auto) 4.2 % (0.0-12.0); Neutrophils # (auto) 12.1 10 ^3/uL (1.6-8.6); Neutrophils % (auto) 85.5 % (37.0-80.0); Red Blood Cells 5.12 10^6/uL (4.0-5.20); Red Cell Distribution Width 13.6 % (11.8-14.3); White Blood Cell 14.1 10^3/uL (4.4-10.8)
[2024-01-07 16:30] LABS: Alanine Aminotransferase 16 U/L (7-40); Albumin 5.2 g/dL (3.2-4.8); Alkaline Phosphatase 103 U/L (46-116); Anion Gap 13 (5-15); Aspartate Aminotransferase 9 U/L (13-40); Bilirubin, Total 0.9 mg/dL (0.2-1.0); Blood Urea Nitrogen 7 mg/dL (9-23); Calcium 10.7 mg/dL (8.7-10.4); Carbon Dioxide 25 mmol/L (20-30); Chloride 97 mmol/L (98-107); Glucose 106 mg/dL (74-106); Lipase 37 U/L (12-53); Sodium 135 mmol/L (136-145); Total Protein 7.8 g/dL (5.7-8.2)
[2024-01-07 17:00] LABS: Urine Bacteria None Seen /hpf (None Seen)
[2024-01-07 17:06] LABS: Urine Blood Negative /uL (Negative); Urine Clarity Turbid (Clear); Urine Color Yellow (Yellow); Urine Mucus FEW (None Seen); Urine Protein, UAD 1+ (Negative); Urine Specific Gravity 1.021 (1.001-1.035); Urine Urobilinogen 2 mg/dL (Negative); Urine WBC 3 /hpf (0 - 5)
== END 2024-01-07 21:00 | disposition home or self-care (01) ==
LOC: ER 15:18
DX: R10.9 Unspecified abdominal pain (principal); F15.90 Other stimulant use, unspecified, uncomplicated; Z79.899 Other long term (current) drug therapy
CPT/HCPCS: 36415; 80053; 81001; 81025; 83690; 85025

== ENCOUNTER 2024-01-09 15:49 | Emergency (ER) | payer BC, MEDICAID ==
[~2024-01-09] VITALS: Ht 170.2 cm; Wt 64.2 kg
[2024-01-09 16:02] VITALS: BP 118/71; PULSE 86; RESP 19; O2SAT 99
== END 2024-01-09 21:45 | disposition home or self-care (01) ==
LOC: ER 15:49
DX: K21.9 Gastro-esophageal reflux disease without esophagitis (principal); F12.10 Cannabis abuse, uncomplicated